=== PATIENT | male | born 1995 | race Caucasian/White ===

== ENCOUNTER 2017-11-28 18:19 | Emergency (ER) | payer OTHER ==
[2017-11-28] MEDS ORDERED: ONDANSETRON ODT 4 MG TABLET TL STA ×2 (18:54→19:36)
--- NOTE | 2017-11-28 18:54 | ED Physician Documentation ---
PD HPI SYNCOPE - Stated complaint Stated Complaint: SYNCOPE - Chief complaint Chief Complaint: General - History obtained from History obtained from: Patient - History of Present Illness Witnessed: Witnessed Timing - onset: How many minutes ago (just occurred in the ER. His girlfriend was in ER for illness and was getting I started. The patient started to feel nauseated and then lightheaded when watching it, then fainted. He did strike head as he landed on hard floor. Awoke within few seconds of being flat. Dazed for a minute or so but then alert and conversant. Still felt nauseated. Normal neuro exam. Tender spot right forehead. He sat on gurney and was feeling still nauseated, saying he had had a large burrito just before coming to the ED. He was given Zofran SL but had emesis once and then felt a lot better.) Duration: Seconds Preceding symptoms: Nausea / vomiting, Light headed. No: Headache Associated symptoms: No: Seizure, Incontinant of urine Contributing factors: Noxious stimulae (was watching an IV being placed and some blood drawn on his girlfriend in the ER.). No: Recent med change, Decreased PO intake Injury occurred: Fell, Head injury (right forehead) Similar symptoms before: Has not had sx before Recently seen: Not recently seen Review of Systems Constitutional: denies: Fever, Chills Nose: denies: Rhinorrhea / runny nose, Congestion Throat: denies: Sore throat Cardiac: denies: Palpitations Respiratory: denies: Dyspnea, Cough GI: reports: Nausea (just onset at the time of watching blood draw). denies: Diarrhea Neurologic: denies: Focal weakness, Numbness, Headache (not preceding the syncope) PD PAST MEDICAL HISTORY - Past Medical History Past Medical History: No Neuro: None - Past Surgical History Past Surgical History: No - Allergies Allergies/Adverse Reactions: Allergies Allergy/AdvReac Type Severity Reaction Status Date / Time No Known Drug Allergies Allergy Verified 11/28/17 19:05 - Social History Does the pt smoke?: Yes Smoking Status: Current every day smoker Does the pt drink ETOH?: Yes Does the pt have substance abuse?: Yes Substance Use and Type: Marijuana - Immunizations Immunizations are current?: Yes - POLST Patient has POLST: No PD ED PE NORMAL - Vitals Vital signs reviewed: Yes - General General: Alert and oriented X 3, No acute distress (he is pale colored with the fainting but color returns promptly once he is on floor after a minute and he is awake and conversant. ), Well developed/nourished - HEENT HEENT: PERRL, EOMI, Other (riht forehead tender with mild swelling. ) - Neck Neck: Supple, no meningeal sign, No bony TTP, No adenopathy - Cardiac Cardiac: RRR, No murmur - Respiratory Respiratory: Clear bilaterally - Back Back: No spinal TTP - Derm Derm: Warm and dry - Extremities Extremities: No tenderness to palpate, Normal ROM s pain - Neuro Neuro: Alert and oriented X 3, berry planter 2-12 intact, No motor deficit, No sensory deficit, Normal speech Eye Opening: Spontaneous Motor: Obeys Commands Verbal: Oriented GCS Score: 15 Results - Vitals Vitals: Oxygen O2 Source Room air PD MEDICAL DECISION MAKING - ED course Complexity details: considered differential (clearly vasovagal syncope. Head contusion but did not seem concussive (some headache and was nauseated with emesis once but seems to be continuation of pre-syncopal nausea). Discussed imaging and we shared decision on no CT and will see how symptoms do. Normal neuro exam. ), d/w patient Departure - Departure Disposition: 01 Home, Self Care Clinical Impression: Syncope Qualifiers: Syncope type: vasovagal syncope Qualified Code(s): R55 - Syncope and collapse Head contusion Qualifiers: Encounter type: initial encounter Contusion of head detail: scalp Qualified Code(s): S00.03XA - Contusion of scalp, initial encounter Condition: Stable Record reviewed to determine appropriate education?: Yes Instructions: ED Head Injury Closed, ED Syncope Vasovagal Comments: Drink lots of fluids. Tylenol or ibuprofen if needed for some headaches. He likely will have a little bit of headache and Some lightheadedness at times over the next day or 2. It sounds like a simple fainting episode in response to the visual stimulus of the blood. Recheck if you have recurrent symptoms or problems. Discharge Date/Time: 11/28/17 20:15
[2017-11-28] MEDS ORDERED: ACETAMINOPHEN 325 MG TABLET PO STA (19:33)
[2017-11-28 20:04] VITALS: BP 118/76
== END 2017-11-28 20:15 | disposition home or self-care (01) ==
LOC: ED 18:19
DX: R55 Syncope and collapse (principal); S00.03XA Contusion of scalp, initial encounter; W18.30XA Fall on same level, unspecified, initial encounter; Y92.239 Unspecified place in hospital as the place of occurrence of the external cause; F17.200 Nicotine dependence, unspecified, uncomplicated
CPT/HCPCS: 99283; 99284; A9270; Q0162